=== PATIENT | female | born 1970 | race Caucasian/White ===

== ENCOUNTER 2017-10-12 09:44 | Observation (INO) | payer BC, OTHER ==
[2017-10-12] MEDS ORDERED: SODIUM CHLORIDE 0.9% 1,000 ML IV STA (09:59)
[2017-10-12] MEDS ORDERED: ONDANSETRON 4 MG/2 ML VIAL IVP STA (10:04)
[2017-10-12] MEDS ORDERED: ACETYLCYSTEINE IV 200 MG/ML 30 ML VIAL IV ONE ×3 (10:04)
--- NOTE | 2017-10-12 10:04 | ED ---
General Adult HPI - General Stated complaint: Overdose, Mental Health Time Seen by Provider: 10/12/17 09:45 Source: RN notes reviewed - History of Present Illness Initial comments: This is a 47-year-old female who presents to the emergency department stating that last night at 10:00 she took about 40 Excedrin an attempt to kill herself. Patient states that about 11:00 she started vomiting and she has been vomiting intermittently since then. Patient states she did not see any pills in the vomitus. Patient states she went to work today wasn't feeling good feeling very weak and she told her boss that she took a bunch of pills an ambulance was called. Patient states she still nauseous. Patient denies any abdominal pain. Patient denies any fevers chills. Patient states she was having a little chest pain earlier but she denies any difficulty breathing or shortness of breath per patient denies any headache. Patient denies any lightheadedness or dizziness. Patient states she feels generally weak. Patient states she has attempted suicide in the past. - Related Data Home Medications Medication Instructions Recorded Confirmed No Known Home Medications [No 10/12/17 10/12/17 Known Home Medications] Allergies Allergy/AdvReac Type Severity Reaction Status Date / Time No Known Allergies Allergy Verified 10/12/17 10:29 Review of Systems ROS Statement: Those systems with pertinent positive or pertinent negative responses have been documented in the HPI. ROS Other: All systems not noted in ROS Statement are negative. General Exam - General Exam Comments Initial Comments: GENERAL: Patient is well-developed and well-nourished. Patient is nontoxic and well- hydrated and is in mild distress. ENT: Neck is soft and supple. No significant lymphadenopathy is noted. Oropharynx is clear. Moist mucous membranes. Neck has full range of motion without eliciting any pain. EYES: The sclera were anicteric and conjunctiva were pink and moist. Extraocular movements were intact and pupils were equal round and reactive to light. Eyelids were unremarkable. PULMONARY: Unlabored respirations. Good breath sounds bilaterally. No audible rales rhonchi or wheezing was noted. CARDIOVASCULAR: Patient is tachycardic.. ABDOMEN: Soft and nontender with normal bowel sounds. No palpable organomegaly was noted. There is no palpable pulsatile mass. SKIN: Skin is clear with no lesions or rashes and otherwise unremarkable. NEUROLOGIC: Patient is alert and oriented x3. Cranial nerves II through XII are grossly intact. Motor and sensory are also intact. Normal speech, volume and content. Symmetrical smile. MUSCULOSKELETAL: Normal extremities with adequate strength and full range of motion. LYMPHATICS: No significant lymphadenopathy is noted PSYCHIATRIC: Patient states she is depressed and attempted suicide last evening. Course Vital Signs 10/12/17 10/12/17 10/12/17 09:54 10:18 10:43 Temperature 98.1 F Pulse Rate 119 H 98 Pulse Rate [ 105 H Left Radial] Respiratory 16 16 Rate Blood Pressure 132/72 144/89 O2 Sat by Pulse 99 10 L Oximetry Medical Decision Making - Medical Decision Making EKG shows normal sinus rhythm at an beats per minute MD interval is on a 42 QRS is 84 QT interval 368 QTC is 474. Patient's EKG shows no ST segment elevation or depression or T wave abnormalities are noted. I started the patient on Mucomyst since she stated she took over 40 pills and the time of ingestion was 12 hours ago I spoke with Dr. Carrizales she agreed to admit the patient. I continued to Mucomyst on the floor. I wrote admitting orders. I consult to psychiatry - Lab Data Result diagrams: 10/12/17 10:15 10/12/17 10:15 Lab Results 10/12/17 10/12/17 10/12/17 Range/Units 10:05 10:15 10:15 WBC (3.8-10.6) k/uL RBC (3.80-5.40) m/uL Hgb (11.4-16.0) gm/dL Hct (34.0-46.0) % MCV (80.0-100.0) fL MCH (25.0-35.0) pg MCHC (31.0-37.0) g/dL RDW (11.5-15.5) % Plt Count (150-450) k/uL Neutrophils % % Lymphocytes % % Monocytes % % Eosinophils % % Basophils % % Neutrophils # (1.3-7.7) k/uL Lymphocytes # (1.0-4.8) k/uL Monocytes # (0-1.0) k/uL Eosinophils # (0-0.7) k/uL Basophils # (0-0.2) k/uL PT 10.5 (9.0-12.0) sec INR 1.1 (<1.2) APTT 21.7 L (22.0-30.0) sec Sample Site l rad ABG pH 7.45 (7.35-7.45) ABG pCO2 32 L (35-45) mmHg ABG pO2 93 (83-108) mmHg ABG HCO3 22 (21-25) mmol/L ABG O2 Saturation 98.0 H (94-97) % ABG Base Excess -1.1 mmol/L Lavell Test Yes FiO2 21 % Sodium 143 (137-145) mmol/L Potassium 3.4 L (3.5-5.1) mmol/L Chloride 105 (98-107) mmol/L Carbon Dioxide 23 (22-30) mmol/L Anion Gap 15 mmol/L BUN 14 (7-17) mg/dL Creatinine 0.80 (0.52-1.04) mg/dL Est GFR (CKD-EPI)AfAm >90 (>60 ml/min/1.73 sqM) Est GFR (CKD-EPI)NonAf 89 (>60 ml/min/1.73 sqM) Glucose 179 H (74-99) mg/dL Calcium 9.2 (8.4-10.2) mg/dL Total Bilirubin 0.5 (0.2-1.3) mg/dL Conjugated Bilirubin 0.0 (0.0-0.3) mg/dL Unconjugated Bilirubin 0.2 (0.0-1.1) mg/dL Delta Bilirubin 0.3 H (0.0-0.2) mg/dL AST 16 (14-36) U/L ALT 22 (9-52) U/L Alkaline Phosphatase 71 (38-126) U/L Total Creatine Kinase (30-135) U/L Total Protein 7.3 (6.3-8.2) g/dL Albumin 4.4 (3.5-5.0) g/dL Salicylates 15.5 mg/dL Acetaminophen 15.3 ug/mL Serum Alcohol <10 mg/dL 10/12/17 10/12/17 Range/Units 10:15 10:15 WBC 10.6 (3.8-10.6) k/uL RBC 4.67 (3.80-5.40) m/uL Hgb 14.1 (11.4-16.0) gm/dL Hct 41.4 (34.0-46.0) % MCV 88.7 (80.0-100.0) fL MCH 30.1 (25.0-35.0) pg MCHC 34.0 (31.0-37.0) g/dL RDW 12.0 (11.5-15.5) % Plt Count 186 (150-450) k/uL Neutrophils % 89 % Lymphocytes % 8 % Monocytes % 3 % Eosinophils % 0 % Basophils % 0 % Neutrophils # 9.3 H (1.3-7.7) k/uL Lymphocytes # 0.8 L (1.0-4.8) k/uL Monocytes # 0.3 (0-1.0) k/uL Eosinophils # 0.0 (0-0.7) k/uL Basophils # 0.0 (0-0.2) k/uL PT (9.0-12.0) sec INR (<1.2) APTT (22.0-30.0) sec Sample Site ABG pH (7.35-7.45) ABG pCO2 (35-45) mmHg ABG pO2 (83-108) mmHg ABG HCO3 (21-25) mmol/L ABG O2 Saturation (94-97) % ABG Base Excess mmol/L Lavell Test FiO2 % Sodium (137-145) mmol/L Potassium (3.5-5.1) mmol/L Chloride (98-107) mmol/L Carbon Dioxide (22-30) mmol/L Anion Gap mmol/L BUN (7-17) mg/dL Creatinine (0.52-1.04) mg/dL Est GFR (CKD-EPI)AfAm (>60 ml/min/1.73 sqM) Est GFR (CKD-EPI)NonAf (>60 ml/min/1.73 sqM) Glucose (74-99) mg/dL Calcium (8.4-10.2) mg/dL Total Bilirubin (0.2-1.3) mg/dL Conjugated Bilirubin (0.0-0.3) mg/dL Unconjugated Bilirubin (0.0-1.1) mg/dL Delta Bilirubin (0.0-0.2) mg/dL AST (14-36) U/L ALT (9-52) U/L Alkaline Phosphatase (38-126) U/L Total Creatine Kinase 69 (30-135) U/L Total Protein (6.3-8.2) g/dL Albumin (3.5-5.0) g/dL Salicylates mg/dL Acetaminophen ug/mL Serum Alcohol mg/dL Critical Care Time Critical Care Time: Yes Total Critical Care Time: 35 Disposition Clinical Impression: Drug overdose, Tylenol overdose, Aspirin overdose, Suicide attempt Disposition: ADMITTED IP TO THIS HOSP Referrals: None,Stated [Primary Care Provider] - 1-2 days Time of Disposition: 11:04
[2017-10-12 10:07] LABS: ABG HCO3 22 mmol/L (21-25); ABG PCO2 32 mmHg (35-45); ABG PH 7.45 (7.35-7.45); ABG PO2 93 mmHg (83-108)
[2017-10-12 10:08] LABS: ABG Base Excess -1.1 mmol/L
[2017-10-12] MEDS ORDERED: ACETYLCYSTEINE IV ONE ×4 (10:30→16:00)
[2017-10-12] MEDS ORDERED: WATER IV ONE ×4 (10:30→16:00)
[2017-10-12] MEDS ORDERED: DEXTROSE 5% IV ONE ×4 (10:30→16:00)
[2017-10-12 10:40] LABS: Basophils % (A) 0 %; Eosinophils % (A) 0 %; HCT 41.4 % (34.0-46.0); HGB 14.1 gm/dL (11.4-16.0); Lymphocytes # (A) 0.8 k/uL (1.0-4.8); Lymphocytes % (A) 8 %; MCH 30.1 pg (25.0-35.0); MCV 88.7 fL (80.0-100.0); Mean Platelet Volume 8.6; Monocytes # (A) 0.3 k/uL (0-1.0); Monocytes % (A) 3 %; Neutrophils # (A) 9.3 k/uL (1.3-7.7); Neutrophils % (A) 89 %; Platelet Count 186 k/uL (150-450); RBC 4.67 m/uL (3.80-5.40); WBC 10.6 k/uL (3.8-10.6)
[2017-10-12 10:56] LABS: ALT 22 U/L (9-52); AST 16 U/L (14-36); Acetaminophen 15.3 ug/mL; Albumin 4.4 g/dL (3.5-5.0); Alcohol <10 mg/dL; Alkaline Phosphatase 71 U/L (38-126); Anion Gap 15 mmol/L; Bilirubin, Delta 0.3 mg/dL (0.0-0.2); Bilirubin,Unconjugated 0.2 mg/dL (0.0-1.1); Blood Urea Nitrogen 14 mg/dL (7-17); Calcium 9.2 mg/dL (8.4-10.2); Carbon Dioxide 23 mmol/L (22-30); Chloride 105 mmol/L (98-107); Glucose 179 mg/dL (74-99); Potassium 3.4 mmol/L (3.5-5.1); Salicylate 15.5 mg/dL; Sodium 143 mmol/L (137-145); Total Bilirubin 0.5 mg/dL (0.2-1.3); Total Protein 7.3 g/dL (6.3-8.2)
[2017-10-12 11:00] LABS: INR 1.1 (<1.2); Prothrombin Time 10.5 sec (9.0-12.0)
[2017-10-12 11:03] LABS: Creatine Kinase 69 U/L (30-135); Partial Thromboplastin Time 21.7 sec (22.0-30.0)
[2017-10-12] MEDS ORDERED: SODIUM CHLORIDE 0.9% 1,000 ML IV ONE (11:04)
[2017-10-12 11:16] LABS: Creatine Kinase MB 0.7 ng/mL (0.0-2.4); Troponin I <0.012 ng/mL (0.000-0.034)
[2017-10-12] MEDS ORDERED: PROCHLORPERAZINE 5 MG TAB PO PRN (14:07)
[2017-10-12] MEDS ORDERED: traMADol 50 MG TAB PO PRN (14:07)
[2017-10-12] MEDS ORDERED: NALOXONE 0.4 MG/ML 1 ML VIAL IV PRN (14:07)
[2017-10-12] MEDS ORDERED: MELATONIN 3 MG TABLET PO PRN (14:07)
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
[2017-10-12] MEDS ORDERED: POTASSIUM CHLORIDE 20 MEQ in WATER FOR INJECTION 1 100ML.BAG IVPB STA (14:17)
[2017-10-12 15:44] LABS: Amphetamine Screen,Urine Not Detected (NotDetected); Barbiturate Screen,Urine Not Detected (NotDetected); Benzodiazepines Screen,Urine Not Detected (NotDetected); Cocaine Screen,Urine Not Detected (NotDetected); Methadone Screen, Urine Not Detected (NotDetected); Opiate Screen,Urine Not Detected (NotDetected); Oxycodone Screen, Urine Not Detected (NotDetected); Phencyclidine Screen,Urine Not Detected (NotDetected); Tricyclic Antidepressant,Urine Not Detected (NotDetected); Urn Cannabinoid Scrn Not Detected (NotDetected)
[2017-10-13 06:22] LABS: ALT 22 U/L (9-52); AST 10 U/L (14-36); Acetaminophen <10.0 ug/mL; Albumin 3.6 g/dL (3.5-5.0); Alkaline Phosphatase 49 U/L (38-126); Anion Gap 11 mmol/L; Blood Urea Nitrogen 7 mg/dL (7-17); Calcium 8.7 mg/dL (8.4-10.2); Carbon Dioxide 24 mmol/L (22-30); Chloride 107 mmol/L (98-107); Glucose 110 mg/dL (74-99); Potassium 3.4 mmol/L (3.5-5.1); Sodium 142 mmol/L (137-145); Total Bilirubin 0.3 mg/dL (0.2-1.3); Total Protein 6.1 g/dL (6.3-8.2)
[2017-10-13] MEDS ORDERED: PANTOPRAZOLE 40 MG TABLET PO SCH (07:30)
[2017-10-13 08:34] VITALS: RESP 18
[2017-10-13] MEDS ORDERED: POTASSIUM CHLORIDE ER 20 MEQ TAB.ER PO STA (10:35)
--- NOTE | 2017-10-13 10:39 | P.PN ---
Progress Note - Text Progress Note Date: 10/13/17 Medically stable for discharge. [facility] aware. Formal discharge to follow pending psych recs.
[2017-10-13 11:23] VITALS: BP 134/87; PULSE 76; TEMP 98.5
--- NOTE | 2017-10-13 13:14 | P.DS ---
Providers Date of admission: 10/12/17 11:05 Expected date of discharge: 10/13/17 Attending physician: Regina Carrizales DO Consults: 10/12/17 11:04 Consult Physician Urgent Consulting Provider: George Hadley Consult Reason/Comments: Suicide attempt Do you want consulting provider notified?: Yes Primary care physician: Stated None - Discharge Diagnosis(es) (1) Suicide attempt Current Visit: Yes Status: Acute (2) Tylenol overdose Current Visit: Yes Status: Acute (3) Aspirin overdose Current Visit: Yes Status: Acute (4) Hypokalemia Current Visit: Yes Status: Acute (5) Intractable vomiting Current Visit: Yes Status: Acute Hospital Course: Patient is a 47-year-old female with a past medical history of 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 She took an overdose of Excedrin and a suicide attempt the night prior to admission. On arrival to the emergency department she was slightly tachycardic with heart rate of 119. Her initial laboratory analysis showed slight hypokalemia with potassium of 3.4, salicylate level 15.5, acetaminophen level of 15.3, and a negative serum alcohol level. ABG was unremarkable. PT/INR were normal and PTT was slightly low. EKG showed normal sinus rhythm at a rate of [address]-T and a slightly prolonged QTC of 474. The patient was unsure of the exact time of ingestion or quantity of pill and therefore was started on N-acetylcysteine drip by the emergency department. She was admitted for completion of her N-acetylcysteine drip. She was placed in suicide precautions and a sitter was present at bedside. My initial exam she already was remorseful of the suicide attempt, admitted that she does not plan on doing this in the future, and told me that she plans on going to outpatient therapy from this point forward. She was telling me she will never do this again secondary to her kids and her . She completed her N-acetylcysteine drip. Her serum Tylenol level was undetectable and liver enzymes remained unremarkable. Her vomiting had completely resolved. She was evaluated by mental health and was determined stable for discharge back home with outpatient therapy. She was given a list of mental health providers in the area. She recently stopped going to her primary care physician as she was not happy with the service. She has been to refer her to someone near her home. She has been given a referral to Dr. Yeol Ferrari or his nurse practitioner for further outpatient care. She will avoid Tylenol-containing products for the next 7 days and will take Protonix for the next 14 days. Patient seen and examined at bedside. No additional nausea or vomiting. No abdominal pain. No chest pain or shortness of breath. Alert and oriented 3 with normal thought process. She is excited to go home and does not appear depressed at this time. Vital signs reviewed and stable. General: non toxic, no distress, appears at stated age Derm: warm, dry Head: atraumatic, normocephalic, symmetric Eyes: EOMI, no lid lag, anicteric sclera Mouth: no lip lesion, mucus membranes moist Cardiovascular: S1S2 reg, no murmur, positive posterior tibial pulse bilateral, Lungs: CTA bilateral, no rhonchi, no rales , no accessory muscle use Abdominal: soft, nontender to palpation, no guarding, no appreciable organomegaly Ext: no gross muscle atrophy, no edema, no contractures Neuro: CN II-XI grossly intact, no focal neuro deficits Psych: Alert, oriented, appropriate affect A total of 25 minutes of time were spent preparing this complex discharge summary . Plan - Discharge Summary Discharge Rx Participant: No New Discharge Prescriptions: New Pantoprazole [Protonix] 40 mg PO AC-BRKFST #14 tablet. Discharge Medication List Pantoprazole [Protonix] 40 mg PO AC-BRKFST #14 tablet. 10/13/17 [Rx] Follow up Appointment(s)/Referral(s): None,Stated [Primary Care Provider] - 1-2 days Patient Instructions/Handouts: Acetaminophen Overdose (DC) Discharge Disposition: HOME SELF-CARE
[2017-10-13 13:17] VITALS: BMI 25.0
== END 2017-10-13 15:48 | disposition home or self-care (01) ==
LOC: EC 09:44 → 4MS4W 11:05 → INTOOBSV 11:05 → 5MS5E 11:40 → 6SEL 11:56
PROVIDERS: ADMIT Internal Medicine; ATTEND Internal Medicine
DX: T39.1X2A Poisoning by 4-Aminophenol derivatives, intentional self-harm, initial encounter (principal); T39.012A Poisoning by aspirin, intentional self-harm, initial encounter; T43.612A Poisoning by caffeine, intentional self-harm, initial encounter; F31.9 Bipolar disorder, unspecified; F60.3 Borderline personality disorder; E87.6 Hypokalemia; R11.2 Nausea with vomiting, unspecified; R53.1 Weakness; R20.0 Anesthesia of skin; R20.2 Paresthesia of skin; R00.0 Tachycardia, unspecified; I20.9 Angina pectoris, unspecified; Z82.3 Family history of stroke; Z80.1 Family history of malignant neoplasm of trachea, bronchus and lung; Z82.49 Family history of ischemic heart disease and other diseases of the circulatory system
CPT/HCPCS: 99291 ×2; 96365 ×2; 96366 ×9; 96367 ×2; 96375 ×2; 82075; 36415; 36600; 93005; 80053 ×2; 82248; 82550; 82553; 82805; 84484; 85025; 85610; 85730; 81025; 80306; 83520 ×3; 80320; G0378 ×3; S0183; J3480; J2405; J0132

== ENCOUNTER 2018-02-24 19:31 | Observation (INO) | payer BC ==
--- NOTE | 2018-02-24 19:58 | ED ---
General Adult HPI - General Chief complaint: Chest Pain Stated complaint: Chest Pain Time Seen by Provider: 02/24/18 19:39 Source: patient, RN notes reviewed, old records reviewed Mode of arrival: ambulatory Limitations: no limitations - History of Present Illness Initial comments: 47 female presents for evaluation of left-sided chest pain. Patient describes the pain as squeezing in nature. She's had these symptoms for approximately 24 hours. She has had intermittent chest pain over the past several weeks, she had an appointment with cardiology, had an echo and stress test that she was unable to complete. She has no known history of CAD, she is a nonsmoker nondiabetic. She does have history of hypertension which is currently being treated. She describes bilateral upper shoulder pain associated with her central chest pain. She also reports some nausea. Denies cough. States she's had some subjective fever and chills as well as some mild dyspnea. - Related Data Home Medications Medication Instructions Recorded Confirmed Ibuprofen [Motrin] 800 mg PO BID PRN 02/24/18 02/24/18 amLODIPine BESYLATE [Norvasc] 7.5 mg PO DAILY 02/24/18 02/24/18 buPROPion HCL [Wellbutrin XL] 300 mg PO DAILY 02/24/18 02/24/18 Allergies Allergy/AdvReac Type Severity Reaction Status Date / Time No Known Allergies Allergy Verified 02/24/18 20:13 Review of Systems ROS Statement: Those systems with pertinent positive or pertinent negative responses have been documented in the HPI. ROS Other: All systems not noted in ROS Statement are negative. Past Medical History Past Medical History: No Reported History Additional Past Medical History / Comment(s): Chronic angina, unknown cause. Chronic left sided numbness and tingling History of Any Multi-Drug Resistant Organisms: None Reported Past Surgical History: Hysterectomy, Tubal Ligation Past Anesthesia/Blood Transfusion Reactions: No Reported Reaction Past Psychological History: Bipolar, Depression Smoking Status: Former smoker Past Alcohol Use History: None Reported Past Drug Use History: None Reported - Past Family History Father Additional Family Medical History / Comment(s): ETOH abuse. Mother Family Medical History: Cancer, Myocardial Infarction ([place]) Additional Family Medical History / Comment(s): Lung cancer. Mother was a smoker. General Exam Limitations: no limitations General appearance: alert, in no apparent distress Head exam: Present: atraumatic, normocephalic Eye exam: Present: normal appearance, PERRL ENT exam: Present: normal exam Neck exam: Present: normal inspection Respiratory exam: Present: normal lung sounds bilaterally. Absent: respiratory distress Cardiovascular Exam: Present: regular rate, normal rhythm GI/Abdominal exam: Present: soft. Absent: distended, tenderness, guarding Extremities exam: Present: normal inspection, normal capillary refill. Absent: pedal edema Back exam: Present: normal inspection, full ROM Neurological exam: Present: alert, oriented X3, CN II-XII intact. Absent: motor sensory deficit Psychiatric exam: Present: normal affect, normal mood Skin exam: Present: warm, dry, intact. 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 Medical Decision Making - Medical Decision Making 47 yo female presenting with chest pain. She has had no other symptoms for the past several weeks, she did have an outpatient stress test but was unable to complete this secondary to exercise intolerance. She has continued to have pain. Workup in the emergency department reveals EKG with no definitive signs of ischemia, chest x-ray negative for acute cardiopulmonary disease. Normal CBC , normal CMP, negative initial troponin. Patient will be kept in observation for serial cardiac enzymes, cardiology consultation, and telemetry. - Lab Data Result diagrams: 02/24/18 20:04 02/24/18 20:04 Lab Results 02/24/18 02/24/18 02/24/18 Range/Units 20:04 20:04 20:04 WBC 5.6 (3.8-10.6) k/uL RBC 4.56 (3.80-5.40) m/uL Hgb 13.5 (11.4-16.0) gm/dL Hct 42.0 (34.0-46.0) % MCV 92.0 (80.0-100.0) fL MCH 29.5 (25.0-35.0) pg MCHC 32.1 (31.0-37.0) g/dL RDW 12.3 (11.5-15.5) % Plt Count 156 (150-450) k/uL Neutrophils % 64 % Lymphocytes % 27 % Monocytes % 5 % Eosinophils % 3 % Basophils % 1 % Neutrophils # 3.6 (1.3-7.7) k/uL Lymphocytes # 1.5 (1.0-4.8) k/uL Monocytes # 0.3 (0-1.0) k/uL Eosinophils # 0.1 (0-0.7) k/uL Basophils # 0.1 (0-0.2) k/uL PT (9.0-12.0) sec INR (<1.2) APTT (22.0-30.0) sec Sodium 141 (137-145) mmol/L Potassium 3.8 (3.5-5.1) mmol/L Chloride 106 (98-107) mmol/L Carbon Dioxide 26 (22-30) mmol/L Anion Gap 9 mmol/L BUN 14 (7-17) mg/dL Creatinine 0.90 (0.52-1.04) mg/dL Est GFR (CKD-EPI)AfAm 89 (>60 ml/min/1.73 sqM) Est GFR (CKD-EPI)NonAf 77 (>60 ml/min/1.73 sqM) Glucose 134 H (74-99) mg/dL Calcium 9.1 (8.4-10.2) mg/dL Magnesium 1.9 (1.6-2.3) mg/dL Total Bilirubin 0.3 (0.2-1.3) mg/dL AST 18 (14-36) U/L ALT 25 (9-52) U/L Alkaline Phosphatase 56 (38-126) U/L Total Creatine Kinase 61 (30-135) U/L CK-MB (CK-2) 0.3 (0.0-2.4) ng/mL CK-MB (CK-2) Rel Index 0.5 Troponin I <0.012 (0.000-0.034) ng/mL NT-Pro-B Natriuret Pep pg/mL Total Protein 6.6 (6.3-8.2) g/dL Albumin 4.0 (3.5-5.0) g/dL Lipase 45 (23-300) U/L 02/24/18 02/24/18 Range/Units 20:04 20:04 WBC (3.8-10.6) k/uL RBC (3.80-5.40) m/uL Hgb (11.4-16.0) gm/dL Hct (34.0-46.0) % MCV (80.0-100.0) fL MCH (25.0-35.0) pg MCHC (31.0-37.0) g/dL RDW (11.5-15.5) % Plt Count (150-450) k/uL Neutrophils % % Lymphocytes % % Monocytes % % Eosinophils % % Basophils % % Neutrophils # (1.3-7.7) k/uL Lymphocytes # (1.0-4.8) k/uL Monocytes # (0-1.0) k/uL Eosinophils # (0-0.7) k/uL Basophils # (0-0.2) k/uL PT 10.3 (9.0-12.0) sec INR 1.1 (<1.2) APTT 22.8 (22.0-30.0) sec Sodium (137-145) mmol/L Potassium (3.5-5.1) mmol/L Chloride (98-107) mmol/L Carbon Dioxide (22-30) mmol/L Anion Gap mmol/L BUN (7-17) mg/dL Creatinine (0.52-1.04) mg/dL Est GFR (CKD-EPI)AfAm (>60 ml/min/1.73 sqM) Est GFR (CKD-EPI)NonAf (>60 ml/min/1.73 sqM) Glucose (74-99) mg/dL Calcium (8.4-10.2) mg/dL Magnesium (1.6-2.3) mg/dL Total Bilirubin (0.2-1.3) mg/dL AST (14-36) U/L ALT (9-52) U/L Alkaline Phosphatase (38-126) U/L Total Creatine Kinase (30-135) U/L CK-MB (CK-2) (0.0-2.4) ng/mL CK-MB (CK-2) Rel Index Troponin I (0.000-0.034) ng/mL NT-Pro-B Natriuret Pep 74 pg/mL Total Protein (6.3-8.2) g/dL Albumin (3.5-5.0) g/dL Lipase (23-300) U/L Disposition Clinical Impression: Chest pain Disposition: ADMITTED IP TO THIS HOSP Condition: Stable Is patient prescribed a controlled substance at d/c from ED?: No Referrals: Yoel Ferrari MD [Primary Care Provider] - 1-2 days Decision to Admit Reason: Admit from EC Decision Date: 02/24/18 Decision Time: 21:19
[2018-02-24 20:20] LABS: Basophils # (A) 0.1 k/uL (0-0.2); Basophils % (A) 1 %; Eosinophils # (A) 0.1 k/uL (0-0.7); Eosinophils % (A) 3 %; HGB 13.5 gm/dL (11.4-16.0); Lymphocytes # (A) 1.5 k/uL (1.0-4.8); Lymphocytes % (A) 27 %; MCH 29.5 pg (25.0-35.0); MCHC 32.1 g/dL (31.0-37.0); Mean Platelet Volume 7.5; Monocytes # (A) 0.3 k/uL (0-1.0); Monocytes % (A) 5 %; Neutrophils # (A) 3.6 k/uL (1.3-7.7); Neutrophils % (A) 64 %; Platelet Count 156 k/uL (150-450); RBC 4.56 m/uL (3.80-5.40); RDW 12.3 % (11.5-15.5); WBC 5.6 k/uL (3.8-10.6)
[2018-02-24 20:30] LABS: INR 1.1 (<1.2); Prothrombin Time 10.3 sec (9.0-12.0)
[2018-02-24 20:31] LABS: Partial Thromboplastin Time 22.8 sec (22.0-30.0)
[2018-02-24 20:32] LABS: Calcium 9.1 mg/dL (8.4-10.2); Magnesium 1.9 mg/dL (1.6-2.3); Potassium 3.8 mmol/L (3.5-5.1); Total Bilirubin 0.3 mg/dL (0.2-1.3); Total Protein 6.6 g/dL (6.3-8.2)
[2018-02-24 20:43] LABS: Creatine Kinase 61 U/L (30-135)
--- NOTE | 2018-02-24 20:46 | XR ---
EXAMINATION: XR chest 2V DATE AND TIME: 02/24/2018 8:24 PM CLINICAL INDICATION: Chest Pain TECHNIQUE: PA and lateral COMPARISON: None. FINDINGS: The lungs are clear. The pleural spaces are negative. The cardiac silhouette is not enlarged. The remainder of the mediastinal silhouette is unremarkable. The skeletal structures and soft tissues are negative for acute findings. IMPRESSION: NO ACUTE PROCESS.
[2018-02-24 20:55] LABS: Creatine Kinase MB 0.3 ng/mL (0.0-2.4); Troponin I <0.012 ng/mL (0.000-0.034)
[2018-02-24] MEDS ORDERED: IBUPROFEN 400 MG TAB PO PRN (21:15)
[2018-02-24] MEDS ORDERED: ASPIRIN 325 MG TAB PO STA (21:15)
[2018-02-24] MEDS ORDERED: ONDANSETRON 4 MG/2 ML VIAL IVP PRN (21:15)
[2018-02-24] MEDS ORDERED: ACETAMINOPHEN TAB 325 MG TAB PO PRN (21:15)
[2018-02-24] MEDS ORDERED: NALOXONE 0.4 MG/ML 1 ML VIAL IV PRN (21:15)
[2018-02-24] MEDS ORDERED: ALPRAZolam 0.25 MG TAB PO PRN (23:48)
--- NOTE | 2018-02-24 23:57 | P.HPIM ---
History of Present Illness H&P Date: 02/24/18 Chief Complaint: chest pain 47 year old female with history of hypertension. Patient presented due to chest pain she is bright left-sided and central chest pain squeezing in nature that comes and goes rated at 6-8 out of 10 in severity radiating to the back and shoulders she does not recall any trauma or any physical activity out of the ordinary , this pain has been going on for almost 2 weeks however she felt that has worsened over the past 2 days. She reports that the pain increases with deep breathing and movement no relieving factors just goes away on its own. Otherwise pain is not related to activity and sometimes happens at rest . Patient denies anginal symptoms .Patient denies any associated nausea or vomiting or lightheadedness however she does report some nausea with eating. She also recalls an event of near syncope yesterday when she was squatting and all of a sudden she stood up and felt dizzy sounds like a vasovagal attack she works in [employer]. Otherwise he denies any fevers chills denies any vomiting denies any abdominal pain or changes in her bowel or urinary habits denies any hearing changes. However she does report some poor vision over the past 2-3 weeks and she thinks she needs to see her stem roller again she thinks she might need new prescription glasses as hers is old. 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 CODE STATUS discussed with the patient patient elected a DO NOT RESUSCITATE refusing any short-term or long-term resuscitation measures. And she named her daughter Link is a surrogate decision make Review of Systems Pertinent positives as noted in HPI. All other systems were reviewed and are negative Past Medical History Past Medical History: No Reported History Additional Past Medical History / Comment(s): Chronic angina, unknown cause. Chronic left sided numbness and tingling History of Any Multi-Drug Resistant Organisms: None Reported Past Surgical History: Hysterectomy, Tubal Ligation Past Anesthesia/Blood Transfusion Reactions: No Reported Reaction Past Psychological History: Bipolar, Depression Additional Psychological History / Comment(s): Pt has hx of borderline personality disorder as well. Smoking Status: Former smoker Past Alcohol Use History: None Reported Additional Past Alcohol Use History / Comment(s): Pt states she has only smoked socially if drinking alcohol. She states she has hx of alcoholism and quit drinking heavily 25 yrs ago. She states she can now drink socially Past Drug Use History: None Reported - Past Family History Father Additional Family Medical History / Comment(s): ETOH abuse. Mother Family Medical History: Cancer, Myocardial Infarction ([place]) Additional Family Medical History / Comment(s): Lung cancer. Mother was a smoker. Medications and Allergies Home Medications Medication Instructions Recorded Confirmed Type Ibuprofen [Motrin] 800 mg PO BID PRN 02/24/18 02/24/18 History amLODIPine BESYLATE [Norvasc] 7.5 mg PO DAILY 02/24/18 02/24/18 History buPROPion HCL [Wellbutrin XL] 300 mg PO DAILY 02/24/18 02/24/18 History Allergies Allergy/AdvReac Type Severity Reaction Status Date / Time No Known Allergies Allergy Verified 02/24/18 22:31 Physical Exam Vitals: Vital Signs Temp Pulse Pulse Resp BP BP Pulse Ox 02/24/18 22:32 18 02/24/18 22:10 98.2 F 68 18 146/92 96 02/24/18 21:43 98.1 F 71 18 149/99 100 02/24/18 20:46 74 18 142/85 100 02/24/18 19:49 97 17 02/24/18 19:37 99.1 F 110 H 18 151/105 99 Intake and Output 02/24/18 02/24/18 02/24/18 06:59 14:59 22:59 Other: Voiding Method Toilet Weight 68.4 kg Constitutional: No acute distress, conversant, pleasant Eyes: Anicteric sclerae, moist conjunctiva, no lid-lag Pupils equal round reactive to light ENMT: NC/AT Oropharynx clear, no erythema, exudates Neck: Supple, FROM, no masses, or JVD No carotid bruits No thyromegaly Lungs: Clear to auscultation Clear to percussion Normal respiratory effort, no accessory muscle use Cardiovascular: Heart regular in rate and rhythm, No murmurs, gallops, or rubs No peripheral edema Abdominal: Soft Nontender, no guarding, rebound or rigidity Abdomen moving with respiration Normoactive bowel sounds No hepatomegaly, No splenomegaly No palpable mass No abdominal wall hernia noted Skin: Normal temperature, tone, texture, turgor No induration No subcutaneous nodules No rash, lesions No ulcers Extremities: No digital cyanosis No clubbing Pedal pulses intact and symmetrical Radial pulses intact and symmetrical No calf tenderness Psychiatric: Alert and oriented to person, place and time Appropriate affect fair judgment Neuro Muscles Strength 5/5 in all 4 extremities Sensation to light touch grossly present throughout Cranial nerves II-XII grossly intact No focal sensory deficits Lymphatics: no palpable cervical or supraclavicular , or inguinal lymph nodes Results CBC & Chem 7: 02/24/18 20:04 02/24/18 20:04 Labs: Abnormal Lab Results - Last 24 Hours (Table) 02/24/18 Range/Units 20:04 Glucose 134 H (74-99) mg/dL Thrombosis Risk Factor Assmnt - Choose All That Apply Any of the Below Risk Factors Present?: Yes Each Factor Represents 1 point: Age 41-60 years Other Risk Factors: No Other congenital or acquired thrombophilia - If yes, enter type in comment: No Thrombosis Risk Factor Assessment Total Risk Factor Score: 1 Thrombosis Risk Factor Assessment Level: Low Risk Assessment and Plan Assessment: 47-year-old female with history of hypertension admitted under observation for chest pain rule out, patient had an incomplete stress test performed couple weeks ago at cardiology office due to intolerance of exercising. Essentially presented with worsening chest pain seems to be pleuritic in nature and unlikely to be of cardiac origin. Patient to be further evaluated by cardiology in the morning Plan: Chest pain with atypical features, suggestive of costochondritis Pain control with Toradol Cardiac monitoring Monitor cardiac enzymes Cardiology consult, patient had incomplete stress test done couple weeks ago due to intolerance of exercising on the treadmill EKG showed normal sinus rhythm Initial cardiac enzymes are negative Hypertension continue with amlodipine DVT prophylaxis heparin subcu 3 times a day Surrogate decision-maker: Patient daughter Link CODE STATUS: DO NOT RESUSCITATE Discussed with: Patient, ER, RN Anticipated discharge: <[address]: Home A total of 50 minutes was spent on the care of this complex patient more than 50 % of the time was spent in counseling and care coordination.
[2018-02-25] MEDS: HEPARIN SODIUM,PORCINE 5,000 UNIT/ML 1 ML VIAL SQ SCH ×2 (00:02→10:23)
[2018-02-25] MEDS: KETOROLAC 30 MG/ML 1 ML VIAL IVP SCH ×3 (00:03→11:45)
[2018-02-25 03:42] LABS: Creatine Kinase 44 U/L (30-135)
[2018-02-25 03:53] VITALS: RESP 16
[2018-02-25 03:55] LABS: Creatine Kinase MB 0.3 ng/mL (0.0-2.4); Troponin I <0.012 ng/mL (0.000-0.034)
[2018-02-25 08:24] LABS: Creatine Kinase 45 U/L (30-135)
[2018-02-25 08:37] LABS: Creatine Kinase MB 0.3 ng/mL (0.0-2.4); Troponin I <0.012 ng/mL (0.000-0.034)
--- NOTE | 2018-02-25 08:50 | P.CRDCN ---
History of Present Illness History of present illness: This is a pleasant 47-year-old female past medical history significant for hypertension. Denies history of coronary artery disease. She recently established with Dr. Haro in the office and underwent exercise stress test and echocardiogram as part of an evaluation for atypical chest pain. We' ve been asked to see her in consultation for symptoms of chest discomfort. She states for the last day and a half she has felt a squeezing sensation in the midsternal region with radiation through to the back and bilateral shoulders. This discomfort is associated with shortness of breath, dizziness and nausea. She denies associated palpitations, vomiting or diaphoresis. She denies radiation to the arms neck or jaw. She does describe a discomfort near the right ear. Her pain has been constant for the previous day nap with no specific aggravating or alleviating factors. She has attempted multiple home remedies such as taking a shower, laying down and resting and [id number] medications with no relief of the discomfort. Stress test performed in the office revealed fair exercise tolerance achieving 80% of her target heart rate with no evidence of EKG abnormalities at 80%. Ejection fraction 55% with no acute valvular abnormalities noted. These were both performed 02/11/2018. She continues to feel squeezing sensation in the midsternal region at the time of exam. EKG reveals sinus mechanism with no acute ST or T wave abnormalities noted. Telemetry tracings have been unremarkable. Chest x-ray negative for an acute cardiopulmonary process. Laboratory data reviewed, hemoglobin 13.5, platelets 156, sodium 141, potassium 3.8, creatinine 0.9, magnesium 1.9, cardiac enzymes negative 2 and proBNP 74. Current cardiac medications include amlodipine 7.5 mg daily. Review of Systems At the time of my exam: CONSTITUTIONAL: Denies fever. Denies chills. EYES: Denies blurred vision. Denies vision changes. Denies eye pain. EARS, NOSE, MOUTH & THROAT: Denies headache. Denies sore throat. Denies ear pain. CARDIOVASCULAR: Complains of squeezing midsternal chest pain. Denies shortness of breath. Denies orthopnea. Denies PND. Denies palpitations. RESPIRATORY: Denies cough. GASTROINTESTINAL: Denies abdominal pain. Denies diarrhea. Denies constipation. Denies nausea. Denies vomiting. MUSCULOSKELETAL: Denies myalgias. INTEGUMENTARY: Denies pruitis. Denies rash. NEUROLOGIC: Denies numbness. Denies tingling. Denies weakness. PSYCHIATRIC: Denies anxiety. Denies depression. ENDOCRINE: Denies fatigue. Denies weight change. Denies polydipsia. Denies polyurina. GENITOURINARY: Denies burning, hematuria or urgency with micturation. HEMATOLOGIC: Denies history of anemia. Denies bleeding. Past Medical History Past Medical History: No Reported History Additional Past Medical History / Comment(s): Chronic angina, unknown cause. Chronic left sided numbness and tingling History of Any Multi-Drug Resistant Organisms: None Reported Past Surgical History: Hysterectomy, Tubal Ligation Past Anesthesia/Blood Transfusion Reactions: No Reported Reaction Past Psychological History: Bipolar, Depression Additional Psychological History / Comment(s): Pt has hx of borderline personality disorder as well. Smoking Status: Former smoker Past Alcohol Use History: None Reported Additional Past Alcohol Use History / Comment(s): Pt states she has only smoked socially if drinking alcohol. She states she has hx of alcoholism and quit drinking heavily 25 yrs ago. She states she can now drink socially Past Drug Use History: None Reported - Past Family History Father Additional Family Medical History / Comment(s): ETOH abuse. Mother Family Medical History: Cancer, Myocardial Infarction ([place]) Additional Family Medical History / Comment(s): Lung cancer. Mother was a smoker. Medications and Allergies Home Medications Medication Instructions Recorded Confirmed Type Ibuprofen [Motrin] 800 mg PO BID PRN 02/24/18 02/24/18 History amLODIPine BESYLATE [Norvasc] 7.5 mg PO DAILY 02/24/18 02/24/18 History buPROPion HCL [Wellbutrin XL] 300 mg PO DAILY 02/24/18 02/24/18 History Allergies Allergy/AdvReac Type Severity Reaction Status Date / Time No Known Allergies Allergy Verified 02/24/18 22:31 Physical Exam Vitals: Vital Signs Temp Pulse Pulse Pulse Resp BP BP 02/25/18 03:35 98 F 68 16 155/94 02/25/18 03:15 18 02/24/18 22:32 18 02/24/18 22:10 98.2 F 68 18 146/92 02/24/18 21:43 98.1 F 71 18 149/99 02/24/18 20:46 74 18 142/85 02/24/18 19:49 97 17 02/24/18 19:37 99.1 F 110 H 18 151/105 Pulse Ox 02/25/18 03:35 97 02/25/18 03:15 02/24/18 22:32 02/24/18 22:10 96 02/24/18 21:43 100 02/24/18 20:46 100 02/24/18 19:49 02/24/18 19:37 99 Intake and Output 02/24/18 02/25/18 02/25/18 22:59 06:59 14:59 Other: Voiding Method Toilet Toilet # Voids 2 Weight 68.4 kg Blood pressure 155/94 heart rate 68 afebrile maintaining oxygen saturation on room air GENERAL: This is a 47-year-old female in no apparent distress at the time of my examination. HEENT: Head is atraumatic, normocephalic. Pupils are equal, round. Sclerae anicteric. Conjunctivae are clear. Mucous membranes of the mouth are moist. Neck is supple. There is no jugular venous distention. No carotid bruit is heard. LUNGS: Clear to auscultation no wheezes, rales or rhonchi. Positive chest wall tenderness is noted on palpation and with deep breathing. HEART: Regular rate and rhythm without murmurs, rubs or gallops. S1 and S2 heard. ABDOMEN: Soft, nontender. Bowel sounds are heard. No organomegaly noted. EXTREMITIES: No evidence of peripheral edema and no calf tenderness noted. VASCULAR: Radial and dorsalis pedis pulses palpated, no evidence of clubbing. NEUROLOGIC: Patient is awake, alert and oriented x3. Results 02/24/18 20:04 02/24/18 20:04 Cardiac Enzymes 02/24/18 02/24/18 02/25/18 Range/Units 20:04 20:04 02:38 AST 18 (14-36) U/L CK-MB (CK-2) 0.3 0.3 (0.0-2.4) ng/mL Troponin I <0.012 <0.012 (0.000-0.034) ng/mL Coagulation 02/24/18 Range/Units 20:04 PT 10.3 (9.0-12.0) sec APTT 22.8 (22.0-30.0) sec CBC 02/24/18 Range/Units 20:04 WBC 5.6 (3.8-10.6) k/uL RBC 4.56 (3.80-5.40) m/uL Hgb 13.5 (11.4-16.0) gm/dL Hct 42.0 (34.0-46.0) % Plt Count 156 (150-450) k/uL Comprehensive Metabolic Panel 02/24/18 Range/Units 20:04 Sodium 141 (137-145) mmol/L Potassium 3.8 (3.5-5.1) mmol/L Chloride 106 (98-107) mmol/L Carbon Dioxide 26 (22-30) mmol/L BUN 14 (7-17) mg/dL Creatinine 0.90 (0.52-1.04) mg/dL Glucose 134 H (74-99) mg/dL Calcium 9.1 (8.4-10.2) mg/dL AST 18 (14-36) U/L ALT 25 (9-52) U/L Alkaline Phosphatase 56 (38-126) U/L Total Protein 6.6 (6.3-8.2) g/dL Albumin 4.0 (3.5-5.0) g/dL Current Medications Generic Name Dose Route Start Last Admin Trade Name Freq PRN Reason Stop Dose Admin Acetaminophen 650 mg 02/24/18 21:15 Tylenol Tab PO Q6HR PRN Mild Pain or Fever > 100.5 Alprazolam 0.25 mg 02/24/18 23:48 02/25/18 00:01 Xanax PO 0.25 mg TID PRN Administration Anxiety Amlodipine Besylate 7.5 mg 02/25/18 09:00 Norvasc PO DAILY CHRISTINE Bupropion HCl 300 mg 02/25/18 09:00 Wellbutrin Xl PO DAILY CHRISTINE Famotidine 20 mg 02/25/18 09:00 Pepcid PO BID CHRISTINE Heparin Sodium (Porcine) 5,000 unit 02/25/18 00:00 02/25/18 00:02 Heparin SQ 5,000 unit Q8HR CHRISTINE Administration Ketorolac Tromethamine 15 mg 02/25/18 00:00 02/25/18 05:23 Toradol IVP 02/28/18 23:49 15 mg Q6HR CHRISTINE Administration Naloxone HCl 0.2 mg 02/24/18 21:15 Narcan IV Q2M PRN Opioid Reversal Ondansetron HCl 4 mg 02/24/18 21:15 Zofran IVP Q8HR PRN Nausea And Vomiting Intake and Output 02/24/18 02/25/18 02/25/18 22:59 06:59 14:59 Other: Voiding Method Toilet Toilet # Voids 2 Weight 68.4 kg 02/24/18 20:04 02/24/18 20:04 Assessment and Plan Assessment: ASSESSMENT Musculoskeletal pain, atypical for angina. Recent exercise stress test in the office achieved 80% of target heart rate with no EKG abnormalities noted. Hypertension PLAN An acute coronary event has been ruled out. Stable from a cardiac perspective with a recent stress test performed in the office. Ongoing medical management of musculoskeletal chest discomfort per primary care team. Follow-up with Dr. Haro next scheduled regularly appointment. Thank you kindly for this consultation. Nurse Practitioner note has been reviewed, I agree with a documented findings and plan of care. Patient was seen and examined.
[2018-02-25] MEDS ORDERED: FAMOTIDINE 20 MG TAB PO SCH (09:00)
[2018-02-25] MEDS ORDERED: buPROPion XL 300 MG TAB.ER.24H PO SCH (09:00)
[2018-02-25] MEDS ORDERED: amLODIPine 2.5 MG TAB PO SCH (09:00)
[2018-02-25 09:33] VITALS: PULSE 68
[2018-02-25 09:53] VITALS: BMI 23.6
[2018-02-25 11:49] VITALS: BP 121/78; TEMP 98.3
--- NOTE | 2018-02-25 14:41 | P.DS ---
Providers Date of admission: 02/24/18 21:19 Expected date of discharge: 02/25/18 Attending physician: Lesa Chapman MD Consults: 02/24/18 21:16 Consult Physician Routine Consulting Provider: Darci Strange Consult Reason/Comments: CP Do you want consulting provider notified?: Yes Primary care physician: [facility] Course: 47 year old female with history of hypertension presented due to chest pain, left-sided and central chest pain squeezing in nature that comes and goes rated at 6-8 out of 10 in severity radiating to the back and shoulders she does not recall any trauma or any physical activity out of the ordinary , this pain has been going on for almost 2 weeks however she felt that has worsened over the past 2 days. She reports that the pain increases with deep breathing and movement no relieving factors, just goes away on its own. Otherwise pain is not related to activity and sometimes happens at rest. Patient denies any associated nausea or vomiting or lightheadedness however she does report some nausea with eating. She also recalls an event of near syncope yesterday when she was squatting and all of a sudden she stood up and felt dizzy. She does janitorial work. Otherwise he denies any fevers chills denies any vomiting denies any abdominal pain or changes in her bowel or urinary habits denies any hearing changes. However she does report some poor vision over the past 2-3 weeks and she thinks she needs to see her household refrigeration mechanic again she thinks she might need new prescription glasses as hers is old. Patient also reports that a few weeks ago she visited her color consultant upon referral from her PCP for chest pain and stress test on the treadmill was performed. EKG, chest x-ray as well as basic labs including CBC and CMP done in ER were all within normal limits. Subsequently patient was admitted to the hospital for observation, troponins were cycled X3 and remained negative. Patient was evaluated by cardiology, reviewed recent echocardiogram and stress test that patient had in the office and cleared her for discharge. It was thought that the pain was most likely musculoskeletal. Patient was offered physical therapy evaluation and treatment for this pain and she agreed to it. She will be discharged home in stable condition. Patient Condition at Discharge: Stable Plan - Discharge Summary Discharge Rx Participant: No New Discharge Prescriptions: Continue buPROPion HCL [Wellbutrin XL] 300 mg PO DAILY amLODIPine BESYLATE [Norvasc] 7.5 mg PO DAILY Ibuprofen [Motrin] 800 mg PO BID PRN PRN Reason: Pain Discharge Medication List Ibuprofen [Motrin] 800 mg PO BID PRN 02/24/18 [History] amLODIPine BESYLATE [Norvasc] 7.5 mg PO DAILY 02/24/18 [History] buPROPion HCL [Wellbutrin XL] 300 mg PO DAILY 02/24/18 [History] Follow up Appointment(s)/Referral(s): Yoel Ferrari MD [Primary Care Provider] - 1-2 days Niranjan Haro MD [STAFF PHYSICIAN] - As Needed (Follow up at next regularly scheduled appointment. )
== END 2018-02-25 15:12 | disposition home or self-care (01) ==
LOC: EC 19:31 → 3OBS 21:19
PROVIDERS: ADMIT Internal Medicine; ATTEND Internal Medicine
DX: R07.89 Other chest pain (principal); M79.1 Myalgia; R11.0 Nausea; R42 Dizziness and giddiness; I10 Essential (primary) hypertension; F31.9 Bipolar disorder, unspecified; F60.3 Borderline personality disorder; F10.21 Alcohol dependence, in remission; H54.7 Unspecified visual loss; Z66 Do not resuscitate; Z79.899 Other long term (current) drug therapy; Z90.710 Acquired absence of both cervix and uterus; Z87.891 Personal history of nicotine dependence; Z82.49 Family history of ischemic heart disease and other diseases of the circulatory system; Z81.1 Family history of alcohol abuse and dependence; Z80.1 Family history of malignant neoplasm of trachea, bronchus and lung; Z81.2 Family history of tobacco abuse and dependence
CPT/HCPCS: 99285 ×2; 96372; 96374; 96376; 36415; 93005; 83880; 80053; 82550 ×2; 82553 ×2; 83690; 83735; 84484 ×2; 85025; 85610; 85730; 71046; G0378 ×2; J1644; J1885

== ENCOUNTER → 2018-07-22 | Outpatient (CLI) | payer BC ==
--- NOTE | 2018-07-22 12:47 | XR ---
EXAMINATION TYPE: XR hand complete LT DATE OF EXAM: 07/22/2018 CLINICAL HISTORY: pain TECHNIQUE: Frontal, lateral and oblique images of the left hand are obtained. COMPARISON: None. FINDINGS: There is no acute fracture/dislocation evident. The joint spaces appear within normal limi ts. The overlying soft tissue appears unremarkable. IMPRESSION: There is no acute fracture or dislocation. ICD 10 NO FRACTURE, INITIAL EVALUATION
== END | disposition home or self-care (01) ==
LOC: RADXRMAIN 11:17
PROVIDERS: ATTEND Internal Medicine
DX: M79.642 Pain in left hand (principal)

== ENCOUNTER 2018-08-02 13:30 | Emergency (ER) | payer BC ==
[2018-08-02 14:58] LABS: Basophils % (A) 1 %; Eosinophils # (A) 0.1 k/uL (0-0.7); Eosinophils % (A) 2 %; HCT 42.6 % (34.0-46.0); HGB 13.5 gm/dL (11.4-16.0); Lymphocytes % (A) 21 %; MCH 28.9 pg (25.0-35.0); MCHC 31.8 g/dL (31.0-37.0); MCV 90.9 fL (80.0-100.0); Mean Platelet Volume 7.3; Monocytes # (A) 0.2 k/uL (0-1.0); Monocytes % (A) 4 %; Neutrophils # (A) 3.4 k/uL (1.3-7.7); Neutrophils % (A) 71 %; Platelet Count 159 k/uL (150-450); RBC 4.68 m/uL (3.80-5.40); RDW 12.3 % (11.5-15.5); WBC 4.8 k/uL (3.8-10.6)
[2018-08-02 15:06] LABS: INR 0.9 (<1.2); Partial Thromboplastin Time 24.1 sec (22.0-30.0); Prothrombin Time 9.8 sec (9.0-12.0)
[2018-08-02 15:09] LABS: ALT 31 U/L (9-52); AST 17 U/L (14-36); Albumin 4.3 g/dL (3.5-5.0); Alkaline Phosphatase 52 U/L (38-126); Anion Gap 10 mmol/L; Blood Urea Nitrogen 18 mg/dL (7-17); Calcium 9.5 mg/dL (8.4-10.2); Carbon Dioxide 29 mmol/L (22-30); Chloride 104 mmol/L (98-107); Glucose 80 mg/dL (74-99); Potassium 3.6 mmol/L (3.5-5.1); Sodium 143 mmol/L (137-145); Total Bilirubin 0.7 mg/dL (0.2-1.3); Total Protein 7.3 g/dL (6.3-8.2)
[2018-08-02] MEDS: SODIUM CHLORIDE 0.9% 1,000 ML IV STA (15:12)
[2018-08-02] MEDS: PANTOPRAZOLE 40 MG/10 ML VIAL IVP STA (15:13)
--- NOTE | 2018-08-02 16:07 | CT ---
EXAMINATION TYPE: CT abdomen pelvis w con DATE OF EXAM: 08/02/2018 COMPARISON: None HISTORY: Pt c/o diarrhea x8 days, today w/bright bloody stool. Lower center abdominal pain CT DLP: 567.9 mGycm CONTRAST: CT scan of the abdomen and pelvis is performed with Oral Contrast and with IV Contrast, patient injec corrie with 100 mL of Isovue 300. FINDINGS: LUNG BASES-: No visible nodule. No infiltrate. LIVER/GB: No calcified gallstones. No space occupying hepatic lesion. Biliary tree is of normal ca liber. PANCREAS: No inflammation. No distinct mass. SPLEEN: No splenic enlargement. No lesion seen. ADRENALS: No nodule. No thickening. KIDNEYS/BLADDER: No hydronephrosis. No nephrolithiasis. No distinct renal mass. Urinary bladder g rossly unremarkable. BOWEL: Normal appendix. Wall thickening involving the sigmoid colon may reflect underlying colitis or mild diverticulitis. Correlate clinically. No evidence for abscess or perforation. GENITAL ORGANS: Hysterectomy changes. LYMPH NODES: No greater than 1cm abdominal or pelvic lymph nodes are appreciated. AORTA: No significant abnormality. OSSEOUS STRUCTURES: No significant abnormality is seen. OTHER: No significant additional abnormality is seen. IMPRESSION: 1. Wall thickening involving the sigmoid colon may reflect underlying colitis or mild diverticulitis. Correlate clinically.
--- NOTE | 2018-08-02 16:33 | ED ---
GI Bleed HPI - General Chief complaint: GI Bleed Stated complaint: Abd pain, sent by [employer] Time Seen by Provider: 08/02/18 14:02 Source: patient Mode of arrival: ambulatory Limitations: no limitations - History of Present Illness Initial comments: 48-year-old female who denies past medical history presenting today for chief complaint of lower abdominal cramping and blood in diarrhea. Patient states she 's had diarrhea for the past 2 days every time she is in the restroom about 2-3 times a day. Patient states every time she eats she has to use the restroom. Patient states she is tolerating by mouth water and food. Patient states she had a few episodes of emesis however this has since stopped. Patient denies any hematemesis. Patient denies any melena. Patient does admit to hematochezia that began today, she noticed red blood in diarrhea. Patient denies history of hernia. Patient denies having colonoscopy in the past. Patient denies history of Crohn's or ulcerative colitis. Patient does state there is family history of Crohn's disease. Patient denies any severe abdominal pain, she states is mostly cramping with the diarrhea. Patient denies any current nausea. Patient denies any vaginal pain or bleeding. Patient denies cold intolerance, heart palpitations. She denies sick contacts. Patient denies any recent travel. Patient states she did have chicken the day before symptoms started she is not sure if this is correlated with symptoms. Remainder of ROS negative, patient denies any recent fever, chills, shortness of breath, chest pain, back pain, numbness or tingling, dysuria or hematuria, constipation, headaches or visual changes, or any other complaints. Upon arrival patient's vital signs stable. Patient is well-appearing. Patient did present earlier today at an urgent care and was sent to the emergency department for further evaluation - Related Data Home Medications Medication Instructions Recorded Confirmed Ibuprofen [Motrin] 800 mg PO BID PRN 02/24/18 08/02/18 Previous Rx's Medication Instructions Recorded Amoxic-Pot Clav 875-125Mg 1 tab PO Q8H 7 Days #21 tablet 08/02/18 [Augmentin 875-125] Allergies Allergy/AdvReac Type Severity Reaction Status Date / Time No Known Allergies Allergy Verified 08/02/18 13:50 Review of Systems ROS Statement: Those systems with pertinent positive or pertinent negative responses have been documented in the HPI. ROS Other: All systems not noted in ROS Statement are negative. Past Medical History Past Medical History: No Reported History Additional Past Medical History / Comment(s): Chronic angina, unknown cause. Chronic left sided numbness and tingling History of Any Multi-Drug Resistant Organisms: None Reported Past Surgical History: Hysterectomy, Tubal Ligation Past Anesthesia/Blood Transfusion Reactions: No Reported Reaction Past Psychological History: Bipolar, Depression Smoking Status: Former smoker Past Alcohol Use History: None Reported Past Drug Use History: None Reported - Past Family History Father Additional Family Medical History / Comment(s): ETOH abuse. Mother Family Medical History: Cancer, Myocardial Infarction ([place]) Additional Family Medical History / Comment(s): Lung cancer. Mother was a smoker. General Exam - General Exam Comments Initial Comments: General: The patient is awake and alert, in no distress, and does not appear acutely ill. Eye: Pupils are equal, round and reactive to light, extra-ocular movements are intact. No nystagmus. There is normal conjunctiva bilaterally. No signs of icterus. Ears, nose, mouth and throat: There are moist mucous membranes and no oral lesions. Neck: The neck is supple, there is no tenderness or JVD. Cardiovascular: There is a regular rate and rhythm. No murmur, rub or gallop is appreciated. Respiratory: Lungs are clear to auscultation, respirations are non-labored, breath sounds are equal. No wheezes, stridor, rales, or rhonchi. Gastrointestinal: No noted diaphoresis, jaundice, pallor, protecting postures or squirming. Symmetrical pigmentation of abdomen without signs of inflammation.. Umbilicus mildline, inverted without swelling. No dilated veins. No noted abdominal distention. No visible masses. No peristalsis, aortic pulsations, or ventral hernia. Bowel sounds audible in all 4 quadrants, unremarkable. No friction rubs or venous hums. No epigastic, hepatic or abdominal bruits. Bilateral lower abdominal tenderness to deep palpation. No significant tenderness to light palpation. No rigidity or guarding. No upper abdominal pain. Liver edge , not palpable. Spleen edge, right and left kidney not palpable. Superior bladder margin non-tender. Special Testing: Negative Lagro, Rovsing, McBurney, Pita, cutaneous hyperesthesia. Iliopsoas and obturator tests negative bilaterally. Negative Heel Jar test/ bob sign. No CVA tenderness. Digital rectal exam revealed no evidence of obvious hemorrhoid, no gross blood. Negative dejesus turners or cullens sign Musculoskeletal: Normal ROM, no tenderness. Strength 5/5. Sensation intact. Radial pulses equal bilaterally 2+. Neurological: A&O x 3. CN II-XII intact, There are no obvious motor or sensory deficits. Coordination appears grossly intact. Speech is normal. Skin: Skin is warm and dry and no rashes or lesions are noted. Psychiatric: Cooperative, appropriate mood & affect, normal judgment. Limitations: no limitations Course Vital Signs 08/02/18 08/02/18 13:36 16:47 Temperature 97.7 F 97.6 F Pulse Rate 76 80 Respiratory 18 16 Rate Blood Pressure 123/86 120/73 O2 Sat by Pulse 99 99 Oximetry Medical Decision Making - Medical Decision Making Laboratory studies unremarkable. Hemoglobin stable. No neel blood on exam. Patient had noted episodes of vomiting or diarrhea upon physical examination. Patient did have lower abdominal pain concerning for diverticulosis versus diverticulitis. Patient history of ingesting chicken day prior to his onset of symptoms concerning for some melanoma. Patient unable to give stool sample during visit. CT revealed findings consistent with colitis versus mild diverticulitis. Patient be started on Augmentin as recommended by up-to-date. Due to black box morning of return of therapy including for quinolones I feel this is a more appropriate antibiotic regimen. Patient denies significant abdominal pain at this time. Patient appears well, stable is no evidence of complicated diverticulitis. Patient tolerating by mouth intake. Patient given IV fluids. This time do feel patient is stable for discharge with gastroenterology follow-up as well as primary care follow-up in the next 1-2 days. Patient is agreeable plan discharge. I questions at this time. All findings were discussed with patient as well as return parameters. Patient verbalized understanding of all return parameters including worsening or persistent rectal bleeding. Patient discharged stable condition appearing well after discussing the case with attending provider Dr. Murry. - Lab Data Result diagrams: 08/02/18 14:35 08/02/18 14:35 Lab Results 08/02/18 08/02/18 08/02/18 Range/Units 14:35 14:35 14:35 WBC 4.8 (3.8-10.6) k/uL RBC 4.68 (3.80-5.40) m/uL Hgb 13.5 (11.4-16.0) gm/dL Hct 42.6 (34.0-46.0) % MCV 90.9 (80.0-100.0) fL MCH 28.9 (25.0-35.0) pg MCHC 31.8 (31.0-37.0) g/dL RDW 12.3 (11.5-15.5) % Plt Count 159 (150-450) k/uL Neutrophils % 71 % Lymphocytes % 21 % Monocytes % 4 % Eosinophils % 2 % Basophils % 1 % Neutrophils # 3.4 (1.3-7.7) k/uL Lymphocytes # 1.0 (1.0-4.8) k/uL Monocytes # 0.2 (0-1.0) k/uL Eosinophils # 0.1 (0-0.7) k/uL Basophils # 0.0 (0-0.2) k/uL PT (9.0-12.0) sec INR (<1.2) APTT (22.0-30.0) sec Sodium 143 (137-145) mmol/L Potassium 3.6 (3.5-5.1) mmol/L Chloride 104 (98-107) mmol/L Carbon Dioxide 29 (22-30) mmol/L Anion Gap 10 mmol/L BUN 18 H (7-17) mg/dL Creatinine 0.78 (0.52-1.04) mg/dL Est GFR (CKD-EPI)AfAm >90 (>60 ml/min/1.73 sqM) Est GFR (CKD-EPI)NonAf >90 (>60 ml/min/1.73 sqM) Glucose 80 (74-99) mg/dL Plasma Lactic Acid Alberto (0.7-2.0) mmol/L Calcium 9.5 (8.4-10.2) mg/dL Total Bilirubin 0.7 (0.2-1.3) mg/dL AST 17 (14-36) U/L ALT 31 (9-52) U/L Alkaline Phosphatase 52 (38-126) U/L Total Protein 7.3 (6.3-8.2) g/dL Albumin 4.3 (3.5-5.0) g/dL Stool Occult Blood Negative (Negative) 08/02/18 08/02/18 Range/Units 14:35 14:35 WBC (3.8-10.6) k/uL RBC (3.80-5.40) m/uL Hgb (11.4-16.0) gm/dL Hct (34.0-46.0) % MCV (80.0-100.0) fL MCH (25.0-35.0) pg MCHC (31.0-37.0) g/dL RDW (11.5-15.5) % Plt Count (150-450) k/uL Neutrophils % % Lymphocytes % % Monocytes % % Eosinophils % % Basophils % % Neutrophils # (1.3-7.7) k/uL Lymphocytes # (1.0-4.8) k/uL Monocytes # (0-1.0) k/uL Eosinophils # (0-0.7) k/uL Basophils # (0-0.2) k/uL PT 9.8 (9.0-12.0) sec INR 0.9 (<1.2) APTT 24.1 (22.0-30.0) sec Sodium (137-145) mmol/L Potassium (3.5-5.1) mmol/L Chloride (98-107) mmol/L Carbon Dioxide (22-30) mmol/L Anion Gap mmol/L BUN (7-17) mg/dL Creatinine (0.52-1.04) mg/dL Est GFR (CKD-EPI)AfAm (>60 ml/min/1.73 sqM) Est GFR (CKD-EPI)NonAf (>60 ml/min/1.73 sqM) Glucose (74-99) mg/dL Plasma Lactic Acid Alberto 0.9 (0.7-2.0) mmol/L Calcium (8.4-10.2) mg/dL Total Bilirubin (0.2-1.3) mg/dL AST (14-36) U/L ALT (9-52) U/L Alkaline Phosphatase (38-126) U/L Total Protein (6.3-8.2) g/dL Albumin (3.5-5.0) g/dL Stool Occult Blood (Negative) Disposition Clinical Impression: Blood in stool, Diarrhea, Colitis Disposition: HOME SELF-CARE Condition: Good Instructions (If sedation given, give patient instructions): Gastrointestinal Bleeding (ED), Diverticulitis (ED), Diverticulitis Diet (ED) Additional Instructions: Please use medication as discussed. Please follow-up with family doctor in the next 2 days. Please follow-up with gastroenterology in the next 2-3 dats. . Please return to emergency room if the symptoms increase or worsen or for any other concerns. Prescriptions: Amoxic-Pot Clav 875-125Mg [Augmentin 875-125] 1 tab PO Q8H 7 Days #21 tablet Is patient prescribed a controlled substance at d/c from ED?: No Referrals: Yoel Ferrari MD [Primary Care Provider] - 1-2 days Moy Blunt MD [STAFF PHYSICIAN] - 1-2 days Time of Disposition: 16:33
[2018-08-02 16:49] VITALS: BP 120/73; PULSE 80; RESP 16; TEMP 97.6
== END 2018-08-02 16:49 | disposition home or self-care (01) ==
LOC: EC 13:30
DX: K52.9 Noninfective gastroenteritis and colitis, unspecified (principal); K92.1 Melena; Z87.891 Personal history of nicotine dependence; Z90.710 Acquired absence of both cervix and uterus; Z98.51 Tubal ligation status
CPT/HCPCS: 99284; 96374; 36415; 80053; 83605; 85025; 85610; 85730; 82272; 74177; 96361; C9113; Q9967

== ENCOUNTER 2020-08-03 12:32 | Emergency (ER) | payer BC, OTHER ==
[2020-08-03 12:39] VITALS: BP 107/75; PULSE 104; RESP 16; TEMP 98.5
[2020-08-03] MEDS ORDERED: ACET/COD 300 MG/30 MG STARTER PACK 6 TAB BTL PO STA (13:00)
[2020-08-03] MEDS ORDERED: KETOROLAC 15 MG/ML 1 ML VIAL IM STA (13:00)
--- NOTE | 2020-08-03 13:04 | ED ---
ENT HPI - General Chief complaint: Dental/Oral Stated complaint: dental pain Time Seen by Provider: 08/03/20 12:41 Source: patient Mode of arrival: ambulatory Limitations: no limitations - History of Present Illness Initial comments: Patient is a 50-year-old female presenting to emergency Department with complaints of right sided dental pain that been increasing over the past month. Patient states she knows she has a tooth that needs to be pulled however she is waiting for her insurance to kick in, which happens in about 45 days. She denies any fever or chills, no nausea or vomiting. She states she does occasionally have some swelling of the right side of her face however that has been better in last few days. She has no further complaints at this time. By arrival to the ER her vital signs are stable. - Related Data Home Medications Medication Instructions Recorded Confirmed Ibuprofen [Motrin] 800 mg PO BID PRN 02/24/18 08/02/18 Previous Rx's Medication Instructions Recorded Amoxic-Pot Clav 875-125Mg 1 tab PO Q8H 7 Days #21 tablet 08/02/18 [Augmentin 875-125] Penicillin V Potassium [Pen Vee K] 500 mg PO QID 10 Days #40 tablet 08/03/20 Allergies Allergy/AdvReac Type Severity Reaction Status Date / Time No Known Allergies Allergy Verified 08/03/20 12:38 Review of Systems ROS Statement: Those systems with pertinent positive or pertinent negative responses have been documented in the HPI. ROS Other: All systems not noted in ROS Statement are negative. Past Medical History Past Medical History: No Reported History Additional Past Medical History / Comment(s): Chronic angina, unknown cause. Chronic left sided numbness and tingling History of Any Multi-Drug Resistant Organisms: None Reported Past Surgical History: Hysterectomy, Tubal Ligation Past Anesthesia/Blood Transfusion Reactions: No Reported Reaction Past Psychological History: Bipolar, Depression Smoking Status: Never smoker Past Alcohol Use History: Occasional Past Drug Use History: None Reported - Past Family History Father Additional Family Medical History / Comment(s): ETOH abuse. Mother Family Medical History: Cancer, Myocardial Infarction ([place]) Additional Family Medical History / Comment(s): Lung cancer. Mother was a s moker. General Exam - General Exam Comments Initial Comments: GENERAL: Patient is well-developed and well-nourished. Patient is nontoxic and in no acute distress. HEAD: Atraumatic, normocephalic. EYES: Pupils equal round and reactive to light, extraocular movements intact, sclera anicteric, conjunctiva are normal. Eyelids were unremarkable. ENT: TMs normal, nares patent, oropharynx clear without exudates. Moist mucous membranes. Patient has a very loose tooth on the right upper side, there is erosion into the gumline, no obvious dental abscess. She also has numerous surrounding dental cavities and fractured teeth. There is no right-sided facial swelling. NECK: Normal range of motion, supple without lymphadenopathy or JVD. LUNGS: Unlabored respirations. Breath sounds clear to auscultation bilaterally and equal. No wheezes rales or rhonchi. HEART: Regular rate and rhythm without murmurs, rubs or gallops. ABDOMEN: Soft, nontender, normoactive bowel sounds. No guarding, no rebound. No masses appreciated. : Deferred MUSCULOSKELETAL: Normal extremities with adequate strength and normal range of motion, no pitting or edema. No clubbing or cyanosis. NEUROLOGICAL: Patient is alert and oriented x 3. Motor and sensory are also intact. Cranial nerves II through XII grossly intact. Symmetrical smile. Normal speech, normal gait. PSYCH: Normal mood, normal affect. SKIN: Warm, Dry, normal turgor, no rashes or lesions noted. Limitations: no limitations Course Vital Signs 08/03/20 12:36 Temperature 98.5 F Pulse Rate 104 H Respiratory 16 Rate Blood Pressure 107/75 O2 Sat by Pulse 98 Oximetry Medical Decision Making - Medical Decision Making Patient is a 50-year-old female here for right-sided dental pain as been increasing over the past month. She states she is waiting for insurance to kick in and 45 days to see her dentist. Her vitals are stable, afebrile. There is no obvious dental abscess seen. She does have many dental cavities, a very loose tooth in the right upper side that has some erosion into the gumline. I will start patient on penicillin, give her Toradol injection today and Tylenol 3's to go home with. She is angry with that plan and care. Return parameters were discussed with the patient she verbalized understanding. Disposition Clinical Impression: Dental caries, Toothache, Fracture of tooth Disposition: HOME SELF-CARE Condition: Stable Instructions (If sedation given, give patient instructions): Dental Abscess (ED) Additional Instructions: Please return to the Emergency Department if symptoms worsen or any other concerns. Take antibiotic as prescribed. Recommend continuing with anti-inflammatory such as Motrin or Aleve. May take Tylenol 3's for more severe pain. Follow-up with dentist. Prescriptions: Penicillin V Potassium [Pen Vee K] 500 mg PO QID 10 Days #40 tablet Is patient prescribed a controlled substance at d/c from ED?: No Referrals: None,Stated [Primary Care Provider] - 1-2 days
== END 2020-08-03 13:24 | disposition home or self-care (01) ==
LOC: EC 12:32
DX: S02.5XXA Fracture of tooth (traumatic), initial encounter for closed fracture (principal); K02.9 Dental caries, unspecified; Z90.49 Acquired absence of other specified parts of digestive tract; X58.XXXA Exposure to other specified factors, initial encounter
CPT/HCPCS: 99282; 96372; J1885

== ENCOUNTER → 2024-09-19 | Outpatient (CLI) | payer OTHER ==
--- NOTE | 2024-09-19 12:13 | XR ---
EXAMINATION TYPE: XR chest 2V DATE OF EXAM: 09/19/2024 11:53 AM COMPARISON: 02/24/2018 CLINICAL INDICATION: Female, 54 years old with history of R07.9, TECHNIQUE: Frontal and lateral views of the chest are obtained. FINDINGS: There is no focal air space opacity, pleural effusion, or pneumothorax seen. The cardiac silhouette size is within normal limits. The osseous structures are intact. IMPRESSION: No acute cardiopulmonary process. [facility], , 09/19/2024 12:11 PM
== END | disposition home or self-care (01) ==
LOC: RADXRMAIN 11:27
PROVIDERS: ATTEND Family Medicine
DX: R07.9 Chest pain, unspecified (principal)
CPT/HCPCS: 71046